=== PATIENT | male | born 1955 | race Caucasian/White ===

== ENCOUNTER 2024-03-18 08:48 | Day surgery (SDC) | payer MEDICARE, SELFPAY ==
[2024-03-18] VITALS (24 sets, daily range): BP systolic 113–154; BP diastolic 60–91; PULSE 53–96; RESP 12–18; TEMP 36.1–36.9; O2SAT 93–99; BMI 28.7
[2024-03-18] MEDS: CELECOXIB 200 MG CAPSULE PO (09:05)
[2024-03-18] MEDS: ACETAMINOPHEN 500 MG TABLET 1000 MG PO ×3 (09:05→20:34)
[2024-03-18] MEDS: OXYCODONE (CR) 10 MG TAB.ER.12H PO (09:05)
[2024-03-18] MEDS: LACTATED RINGERS 1000 ML 1,000 ML 100 ML IV ×2 (09:10→11:13)
[2024-03-18] MEDS: SODIUM CHLORIDE 0.9 % (FLUSH) 10 ML SYRINGE IVF (09:10)
[2024-03-18] MEDS: MIDAZOLAM HCL 1 MG/ML inj IVP (10:25)
[2024-03-18] MEDS: fentaNYL 100 MCG/2 ML inj IVP (10:25)
--- NOTE | 2024-03-18 10:38 | SUR.PREOP ---
TIME?OUT:?1025 PT/Vanessa WILHELM RN/Yash CARRILLO MDA?VERIFICATION?OF?SURGICAL?SITE,?PROCEDURE,?AND?CONSENT OBTAINED?PRIOR?TO?INVASIVE?PROCEDURE.
--- NOTE | 2024-03-18 11:08 | P.NB_ITS ---
Nerve Block Nerve Block Time Seen by Provider: 10:31 Date Seen: 03/18/24 Type of block requested by surgeon for post-operative analgesia: ML/LFCN Time out performed: Yes Verification of patient name: Yes Verification of date of : Yes Site marking: site marked Name of person performing procedure: George Continuous monitoring Was continuous monitoring of O2 sat, B/P, cancer registry manager, recorded every 15 minutes?: Yes Procedure Checklist: sterile prep, needles and gloves Ultrasound guided. Images saved: Yes Medications given in 5ml increments after negative aspiration: Ropivicaine %: 0.5 mL: 30 Needle gauge: 20 Decadron (mg): 10 Precedex (mcg): 25 Patient tolerated procedure well: Yes Additional comments: Needle noted below psoas tendon needle noted adjacent to LFCN Block Charges Block Charge (with Pro Fee): Other Periph Nerve Block Use of Ultrasound Machine for Block: Yes- US Guidance/pain block
--- NOTE | 2024-03-18 11:08 | W.ANESCHARGE ---
Anesthesia Charges Start Date/Time Anesthesia Start Date: 03/18/24 Anesthesia Start Time: 10:47 Stop Date/Time Anesthesia Stop Date: 03/18/24 Anesthesia Stop Time: 13:36
[2024-03-18] MEDS: CEFAZOLIN 2 GM INJ IVP (11:11)
[2024-03-18] MEDS: TRANEXAMIC ACID 100 MG/ML INJ 1000 MG IV (11:12)
--- NOTE | 2024-03-18 11:15 | CRLHL7_ITS ---
For Patients: As a result of the Cures Act, medical imaging exams and procedure reports are released immediately into your electronic medical record. You may view this report before your referring provider. If you have questions, please contact your health care provider. INDICATION: Right total hip. TECHNIQUE: Two spot images of the pelvis and right hip submitted. 14.0 mGy fluoroscopy dose provided. FINDINGS: Images taken during right hip arthroplasty. Dictated by Krishan Silver MD @ 03/18/2024 2:53:03 PM (Electronically Signed)
--- NOTE | 2024-03-18 12:42 | CRLHL7_ITS ---
For Patients: As a result of the Cures Act, medical imaging exams and procedure reports are released immediately into your electronic medical record. You may view this report before your referring provider. If you have questions, please contact your health care provider. Indication: Postop Technique: AP hip centered pelvis and lateral view right hip Findings/Impression: Hardware from a right total hip arthroplasty is in satisfactory position. Bone alignment is normal. No sign of acute fracture. Postop changes are within normal limits. Dictated by Dylan Rodgers MD @ 03/18/2024 3:47:27 PM (Electronically Signed)
--- NOTE | 2024-03-18 12:43 | P.ORPRC_ITS ---
Procedure Note Date of procedure: 03/18/24 Procedure: PREOPERATIVE DIAGNOSIS: Right hip osteoarthritis POSTOPERATIVE DIAGNOSIS: Right hip osteoarthritis NAME OF OPERATION: Right total hip arthroplasty SURGEON: Garett Brooke MD MANAGER SEARCH: [place] Enamorado PA-C, KARLA Johnson IMPLANTS: 1. [employer] [place] # 60 sector ingrowth cup 2. 36 x 60 +4 neutral polyethylene 3. Actis # 11 standard collared ingrowth stem 4. 36 + 1.5 ceramic femoral head ANESTHESIA: Spinal ESTIMATED BLOOD LOSS: 500 cc COMPLICATIONS: None SPECIMENS: None DRAINS: None PREOPERATIVE ANTIBIOTICS: Ancef 2 grams INDICATIONS: The patient is a 68-year-old with a longstanding history of severe, unrelenting right hip pain secondary to end-stage right hip osteoarthritis. Despite appropriate nonoperative management, including activity modification, use of an assist device, anti-inflammatories, [id number] pain medication, physical therapy and injections, they continue to have pain and disability. Operative intervention was offered. The risks, benefits and expected outcomes were discussed in detail. These included but were not limited to: Infection, bleeding, injury to blood vessel or nerve, venous thromboembolism. All questions were answered to their satisfaction. Use of an application assistant was necessary throughout the case for patient positioning and safety, soft tissue retraction and closure. PROCEDURE: The patient was placed supine on the House table. General anesthesia was administered. The application assistant made sure the patient was properly positioned. The right hip was prepped and draped in the usual sterile fashion. The image intensifier was brought in for a perfect AP pelvis and a perfect double tear drop AP view of each hip which were used for intraoperative templating with our fluoroscopic guide. An oblique incision was made 3 cm distal and 3 cm lateral to the anterior superior iliac spine. The application assistant retracted the soft tissues to protect them. Subcutaneous dissection was taken with electrocautery to the superficial fascia. The fascia was divided in line with the incision. Blunt dissection was carried medially to the tensor fascia lacy and sartorius interval. Deep dissection was carried with electrocautery. The circumflex vessels were cauterized and divided. The capsule was exposed and then divided in a T- fashion, tagged with #1 Ethibond sutures. Retractors were placed in the joint, held by the application assistant. The corkscrew was placed in the femoral head. The neck cut was made in the subcapital region. We made a second neck cut more distal. The napkin ring of bone was removed. The femoral head was removed intact. Acetabular retractors were placed, held by the application assistant. The labrum was sharply debrided. The capsule was released. The 43 mm reamer was used to the true medial wall. We then enlarged in 2 mm increments using the image intensifier for our reamer placement. We impacted the cup which had excellent purchase. We placed the polyethylene. Attention was then turned to the proximal femur. The limb was placed in 140 degrees of external rotation, maximum extension and adduction. A significant amount of time was spent releasing the capsule to allow us to deliver the femur into the wound and complete the femoral side safely. Retractors were held by the application assistant throughout the femoral preparation. The card boxer and canal finder were used. Broaches were used to a stable size. The calcar reamer was used. Trial components were placed. The hip was reduced and was found to be stable with appropriate soft tissue tension. Length and offset had been nicely restored using the image intensifier and our fluoroscopic guide. Trial components were removed. The stem was impacted. We placed the femoral head. Again, the hip was reduced and was found to be stable with appropriate soft tissue tension. Length and offset had been nicely restored. The application assistant did a three minute dilute Betadine solution soak. The application assistant irrigated the wound with 3 liters of normal saline via pulse lavage. The application assistant repaired the anterior capsule with a #1 Vicryl and our previously placed Ethibond sutures. The application assistant closed the fascia over the tensor fascia lacy with a #1 PDO Stratafix, subcutaneous tissues with 2-0 Vicryl, skin with a running 3-0 Stratafix and glue. A dry dressing was applied by the application assistant. Sponge and needle counts were correct x 2. The patient tolerated the procedure well; there were no apparent complications. They were awakened and extubated in the operating room, sent to the Post-Anesthesia Care Unit in satisfactory condition. PLAN: 1. The patient will be mobilized with physical therapy, weight-bearing as tolerates 2. Xarelto x 5 days then aspirin x 30 days will be used for DVT prophylaxis 3. The patient will be discharged once medically appropriate
--- NOTE | 2024-03-18 13:42 | W.ANESCHARGE ---
Anesthesia Charges Start Date/Time Anesthesia Start Date: 03/18/24 Anesthesia Start Time: 10:47 Stop Date/Time Anesthesia Stop Date: 03/18/24 Anesthesia Stop Time: 13:36
[2024-03-18] MEDS: fentaNYL 100 MCG/2 ML inj 50 MCG IVP ×2 (13:46→13:57)
[2024-03-18] MEDS: HYDROmorphone 0.5 mg/0.5 ml inj IVP ×3 (15:31→20:34)
--- NOTE | 2024-03-18 15:50 | P.IMCN_ITS ---
Date of Consult Patient: [facility] Patient Consult date: 03/18/24 Requesting Physician: Orthopedics Primary Care Provider: Kirstin Pulido PA-C Consult Narrative Reason for consult: Medical management of comorbidities Narrative: Azam Arauz is a 68 year old male who presented to the hospital today for an elective R WILLIAM. There were no surgical or anesthetic complications noted during procedure. Patient's H&P reviewed, PCP is Kirstin Pulido at [facility]. Past medical history significant for: BPH, ALEXANDRA on CPAP, DM2 on Semaglutide and Metformin (last A1C 5.4, previously 8.0). Postoperative plan: Home with Review of Systems Status of ROS: Reports: 10 or more systems reviewed and unremarkable except as noted in History and below [facility] Medical History (Updated 03/14/24 @ 10:14 by Licha Vogel RN) Alcoholic hepatic failure without coma ?K70.40 - Alcoholic hepatic failure without coma (ICD-10) Type 2 diabetes mellitus without complication, without long-term current use of insulin ?E11.9 - Type 2 diabetes mellitus without complications (ICD-10) BPH without urinary obstruction ?N40.0 - Benign prostatic hyperplasia without lower urinary tract symptoms (ICD-10) Testicular cancer ?C62.90 - Malignant neoplasm of unspecified testis, unspecified whether descended or undescended (ICD-10) Rupture of posterior cruciate ligament of right knee ?S83.521A - Sprain of posterior cruciate ligament of right knee, initial encounter (ICD-10) GERD (gastroesophageal reflux disease) ?K21.9 - Gastro-esophageal reflux disease without esophagitis (ICD-10) Sleep apnea ?G47.30 - Sleep apnea, unspecified (ICD-10) Surgical History (Updated 03/18/24 @ 15:56 by Raegan Alonso MD) Status post right hip replacement ?Z96.641 - Presence of right artificial hip joint (ICD-10) Social History Smoking Status: Never smoker How often do you have a drink containing alcohol: never AUDIT-C Alcohol total score: 0 Non-prescribed substance use: denies use Caffeine: Yes Meds Home Medications and Allergies Home Medications ?Medication ?Instructions ?Recorded ?Confirmed ?Type losartan 100 mg tablet 100 mg PO DAILY 07/19/22 03/18/24 History omeprazole 40 mg capsule,delayed 40 mg PO DAILY 07/19/22 03/18/24 History release amlodipine 5 mg tablet 5 mg PO DAILY 11/12/23 03/18/24 History metformin 500 mg tablet,extended 1,000 mg PO BIDWM 11/12/23 03/18/24 History release 24 hr semaglutide 1 mg/dose (4 mg/3 mL) 1 mg subcut QWEEK 02/13/24 03/18/24 History subcutaneous pen injector (Ozempic) tamsulosin 0.4 mg capsule 0.4 mg PO DAILY 03/14/24 03/18/24 History tadalafil 10 mg tablet 10 mg PO DAILY PRN 03/18/24 03/18/24 History Allergies Allergy/AdvReac Type Severity Reaction Status Date / Time No Known Drug Allergies Allergy Verified 03/18/24 09:14 Exam Narrative: Exam Narrative: GEN: Alert and oriented, nontoxic, sitting comfortably in bed HEENT: EOMIs bilaterally, no scleral icterus CV: RRR, No concerning murmurs R: No tachypnea, LCTA bilaterally without concerning wheezing, air movement adequate Ext: wwp, no concerning edema Skin: No concerning skin lesions or rashes on exposed skin Neuro: Nonfocal Psych: Appropriate Const: Vital Signs, click to edit/add: Vital Signs - 24 hr 03/18/24 09:14 03/18/24 10:26 03/18/24 10:30 Temperature 97.8 F Pulse Rate 65 62 62 Respiratory Rate 16 16 16 Blood Pressure 154/86 H 151/72 H 131/70 Pulse Oximetry 97 98 95 Oxygen Delivery Me thod Room Air Nasal Cannula Nasal Cannula Oxygen Flow Rate 3 3 03/18/24 13:35 03/18/24 13:40 03/18/24 13:45 Temperature 97.3 F L Pulse Rate 70 68 64 Respiratory Rate 14 14 16 Blood Pressure 114/73 120/78 118/66 Pulse Oximetry 96 98 99 Oxygen Delivery Me thod Room Air Room Air Room Air Oxygen Flow Rate 03/18/24 13:50 03/18/24 13:55 03/18/24 14:00 Temperature Pulse Rate 58 L 57 L 53 L Respiratory Rate 16 16 16 Blood Pressure 114/73 113/67 119/63 Pulse Oximetry 98 98 98 Oxygen Delivery Me thod Room Air Room Air Room Air Oxygen Flow Rate 03/18/24 14:04 Temperature 97.0 F L Pulse Rate 56 L Respiratory Rate 16 Blood Pressure 113/67 Pulse Oximetry 97 Oxygen Delivery Me thod Room Air Oxygen Flow Rate Assessment and Plan Assessment and plan (1) Status post right hip replacement: Problem comment: - 03/18/24Edwardo Status: Acute Plan - pain management and prophylaxis per orthopedic surgery team - continue home medications for comorbidities - anticipate routine postoperative course has
[2024-03-18] MEDS: CEFAZOLIN 2 GM in 0.9 % SODIUM CHLORIDE Mini-bag 100 ML IVPB (17:49)
[2024-03-18] MEDS: OXYCODONE 5 MG TABLET PO ×3 (19:33→23:42)
--- NOTE | 2024-03-18 19:39 | PC.NURSE ---
End of shift note [id number]: Pt arrived onto unit @ 1413. Pt is alert, oriented, cooperative, pleasant. VSS. Tolerating RA, regular diet/fluids well. Pt was up in chair and tolerated activity well. Surgical site is CDI to the R hip. Ice applied. Pt had 2 incontinent briefs. Pt is ranging pain 1-7/10 throughout the shift. Pain relief noted with ice, reposition, scheduled/PRN pain medication. Pt appears resting comfortably with call light in reach. Family member at bedside.
[2024-03-18] MEDS: SENNOSIDES 1 TAB TABLET 2 TAB PO (20:34)
--- NOTE | 2024-03-18 23:44 | PC.NURSE ---
Pt requested 10 mg PRN Oxycodone at this time for 6/10 R hip pain. He states last dose of PRN Oxycodone 5 mg ineffective. Active ice in place.
[2024-03-19] MEDS: CEFAZOLIN 2 GM in 0.9 % SODIUM CHLORIDE Mini-bag 100 ML IVPB (03:02)
[2024-03-19] MEDS: ACETAMINOPHEN 500 MG TABLET 1000 MG PO ×2 (03:03→09:36)
[2024-03-19] MEDS: OXYCODONE 5 MG TABLET PO ×2 (03:13→08:38)
[2024-03-19 03:23] VITALS: BP 121/69; PULSE 95; RESP 18; TEMP 36.8; O2SAT 97
--- NOTE | 2024-03-19 06:25 | PC.NURSE ---
End of shift note [id number]: Pt alert & oriented x 4 and able to make needs known. VSS and pt has been afebrile. R hip pain managed with rest, repositioning, ice, scheduled Tylenol and PRN Oxycodone with pt rating pain 7/10 at its highest this shift after ambulating to and from bathroom. This RN had to straight cath pt last night after noting PVR of 684 mL. He has since voided several times and been continent using urinal and bathroom. Pt noted to have hx of BPH though states he has not had this evaluated by urology. Pt reports he is both continent and incontinent of bladder at home. Geodetic Surveyor did provide education of urinary retention increasing risk for UTI. Plexipulses worn to bilateral feet for most of shift though pt did request to be removed early this morning. Dressing to R hip C/D/I and CMS to R foot intact, pt does report some numbness surrounding R hip incision post surgically. IV to R forearm patent and SL. VSS. Pt transfers/ambulates with SBA using FWW and GB. Pt wears home CPAP at night. Call light within reach.
[2024-03-19 06:47] LABS: Basophils Percent Auto 0.1 % (0.0-3.0); Hematocrit 36.1 % (37.0-53.0); Hemoglobin* 12.1 gm/dL (13.5-17.5); Immature Granulocytes Pct Auto 0.3 %; Lymphocytes Percent Auto 8.4 % (20-44); Mean Corpuscular HGB Conc 34 gm/dL (32-36); Mean Corpuscular Hemoglobin 32 pg (26-34); Mean Corpuscular Volume 97 fL (80-100); Monocytes Percent Auto 11.1 % (0.0-11.0); Neutrophils Percent Auto 80.1 % (42.0-72.0); Platelet Count* 217 K/uL (140-440); Red Blood Count 3.74 m/uL (4.30-5.90); White Blood Count* 13.56 K/uL (4.50-11.00)
[2024-03-19 06:51] LABS: Slide Review Reflex No
[2024-03-19 07:00] VITALS: BP 134/75; PULSE 94; RESP 18; TEMP 37.1; O2SAT 96
[2024-03-19 07:02] LABS: Potassium* 3.8 mmol/L (3.6-5.1); Sodium* 138 mmol/L (135-149)
[2024-03-19 07:05] LABS: Blood Urea Nitrogen* 12 mg/dL (7-30); Creatinine* 0.7 mg/dL (0.5-1.5); Est. Creatinine Clearance* 78.68; Estimated Glomerular Filt Rate 101 ml/min
[2024-03-19] MEDS: SENNOSIDES 1 TAB TABLET 2 TAB PO (08:38)
[2024-03-19] MEDS: RIVAROXABAN 10 MG TABLET PO (08:38)
--- NOTE | 2024-03-19 11:26 | PC.NURSE ---
Pt was discharged to home @ 1118 via wheelchair, accompanied by . Belongings and DC papers signed.
--- NOTE | 2024-03-19 11:56 | PM.ORPN ---
Subjective Subjective Time Seen by Provider: 07:20 Date Seen: 03/19/24 Principal diagnosis: Status post right hip replacement Interval history: Azam is comfortable at rest this morning. He will discharge to home today. He did not get much sleep last night. Ortho Exam Narrative Exam Narrative: Alert and oriented x3. Patient is in no acute distress. Converses without labored breathing. Hearing is grossly intact. Ambulates with a walker. Examination of the right lower extremity shows CMS is intact. Dressing is intact. No erythema or warmth or sign of infection. Calves are soft and nontender. Const Vital Signs, click to edit/add: Vital Signs - 24 hr 03/18/24 13:35 03/18/24 13:40 03/18/24 13:45 Temperature 97.3 F L Pulse Rate 70 68 64 Pulse Rate [Pulse Oximeter] Respiratory Rate 14 14 16 Blood Pressure 114/73 120/78 118/66 Blood Pressure [Left Arm] Pulse Oximetry 96 98 99 Oxygen Delivery Method Room Air Room Air Room Air 03/18/24 13:50 03/18/24 13:55 03/18/24 14:00 Temperature Pulse Rate 58 L 57 L 53 L Pulse Rate [Pulse Oximeter] Respiratory Rate 16 16 16 Blood Pressure 114/73 113/67 119/63 Blood Pressure [Left Arm] Pulse Oximetry 98 98 98 Oxygen Delivery Method Room Air Room Air Room Air 03/18/24 14:04 03/18/24 14:13 03/18/24 14:30 Temperature 97.0 F L 97.5 F L 97.5 F L Pulse Rate 56 L 55 L 59 L Pulse Rate [Pulse Oximeter] Respiratory Rate 16 12 12 Blood Pressure 113/67 127/71 127/85 Blood Pressure [Left Arm] Pulse Oximetry 97 95 93 Oxygen Delivery Method Room Air Room Air Room Air 03/18/24 14:45 03/18/24 15:00 03/18/24 15:00 Temperature 97.9 F Pulse Rate 55 L 58 L Pulse Rate [Pulse Oximeter] Respiratory Rate 14 16 Blood Pressure 122/63 125/71 Blood Pressure [Left Arm] Pulse Oximetry 96 95 97 Oxygen Delivery Method Room Air Room Air Room Air 03/18/24 15:15 03/18/24 15:45 03/18/24 16:15 Temperature 98.4 F 97.5 F L Pulse Rate 57 L 58 L 61 Pulse Rate [Pulse Oximeter] Respiratory Rate 16 16 14 Blood Pressure 131/73 133/66 124/60 Blood Pressure [Left Arm] Pulse Oximetry 97 97 97 Oxygen Delivery Method Room Air Room Air Room Air 03/18/24 17:15 03/18/24 18:00 03/18/24 19:00 Temperature 97.6 F 97.6 F 98.0 F Pulse Rate 62 85 96 Pulse Rate [Pulse Oximeter] Respiratory Rate 16 16 16 Blood Pressure 126/63 146/72 H 126/91 H Blood Pressure [Left Arm] Pulse Oximetry 99 98 98 Oxygen Delivery Method Room Air Room Air Room Air 03/18/24 19:44 03/18/24 21:51 03/18/24 23:00 Temperature 98.0 F 98.4 F Pulse Rate Pulse Rate [Pulse Oximeter] 96 96 Respiratory Rate 16 18 18 Blood Pressure Blood Pressure [Left Arm] 126/91 H 126/67 Pulse Oximetry 98 95 95 Oxygen Delivery Method Room Air Room Air Room Air 03/18/24 23:50 03/19/24 03:23 03/19/24 07:00 Temperature 98.2 F 98.8 F Pulse Rate Pulse Rate [Pulse Oximeter] 96 95 94 Respiratory Rate 18 18 18 Blood Pressure Blood Pressure [Left Arm] 121/69 134/75 Pulse Oximetry 97 96 Oxygen Delivery Method Room Air Room Air 03/19/24 07:00 Temperature Pulse Rate Pulse Rate [Pulse Oximeter] Respiratory Rate Blood Pressure Blood Pressure [Left Arm] Pulse Oximetry Oxygen Delivery Method Room Air Assessment and Plan Assessment and plan (1) Status post right hip replacement: Problem details: - 03/18/24Edwardo Status: Acute Assessment and Plan: Plan for discharge is today, and when they meets discharge criteria. DVT prophylaxis upon discharge Xarelto 10 mg daily for 5 days, then aspirin 81 mg b.i.d. for 30 days.. Remove dressing 1 week. Observe wound and phone Orthopedics with any questions or concerns Use Ice on operative hip unrestricted. Return to clinic in 1 week with PA for a wound check Return to clinic in 6 weeks with surgeon Minimize narcotic use. Wean off and discontinue soon as possible. Activities as tolerated. No strenuous activity. Attend outpt PT
== END 2024-03-19 11:18 | disposition home or self-care (01) ==
LOC: OR 08:49 → MEDSURG 13:04
PROVIDERS: PCP Physician Assistant; Visit Provider Orthopaedic Surgery
PROC: (CPT 27130; principal; 2024-03-18 11:15)
DX: M16.11 Unilateral primary osteoarthritis, right hip (principal); G89.18 Other acute postprocedural pain; G47.33 Obstructive sleep apnea (adult) (pediatric); Z99.89 Dependence on other enabling machines and devices; E11.9 Type 2 diabetes mellitus without complications; Z79.84 Long term (current) use of oral hypoglycemic drugs; Z79.85 Long-term (current) use of injectable non-insulin antidiabetic drugs; N40.0 Benign prostatic hyperplasia without lower urinary tract symptoms
CPT/HCPCS: 27130; 01214; 36415; 51702; 51798; 64450; 73501; 76000; 76942; 82565; 82962; 84132; 84295; 84520; 85025; 86850; 86900; 86901; 97110; 97116; 97161; 97165; 97535; A9270; C1776; J0690; J1100; J1170; J2250; J2405; J2704; J2795; J3010; J7120